=== PATIENT | female | born 1950 | race Caucasian/White ===

== ENCOUNTER → 2017-06-08 | Day surgery (SDC) | payer OTHER, MEDICARE ==
[~2017-06-08] VITALS: Ht 170.2 cm; Wt 129.3 kg
[~2017-06-08] MED LIST: ADVAIR 100-501 EACH INH; ALBUTEROL2.5 MG/3 M INH/SOL; ALPRAZOLAM0.5 MG PO; ASPIRIN EC81 M1 PO; ATORVASTATIN CA20 MG PO; AUGMENTIN 875-1 EACH PO; COZAAR50 M1 PO; CYMBALTA 30 MG30 MG PO; DICLOFENAC SODI75 M3 PO; ECOTRIN81 MG PO; ENDOCET 325 MG-1 TA1 PO; FISH OIL 1,0001 EAC2 PO; FLEXERIL10 MG PO; HYDROCODONE/ACE1 TA1 PO; LAMICTAL200 M1 PO; LASIX20 M1 PO; LIPITOR20 M2 PO; LISINOPRIL20 MG PO; MORPHINE SULFAT30 M4 PO; MULTIVITAMIN1 TAB PO; OXYCODONE5 M1 PO; PERCOCET 10-321 EACH PO; PREDNISONE50 M1 PO; PROBIOTIC FORMU1 CAP PO; PROPRANOLOL HCL80 M2 PO; PROPRANOLOL HYD80 MG PO; SKELAXIN800 M1 PO; TURMERIC500 M2 PO; VENTOLIN HFA18 GM INH; VENTOLIN HFA18 GM PO; VICODIN 5-3001 EACH PO; VITAMIN B COMP1 EACH PO; WELLBUTRIN XL150 M2 PO
--- NOTE | 2017-06-08 10:27 | Operative Report ---
Operative/Inv Procedure Report Surgery Date: 06/08/17 Name of Procedure: Cataract extraction with intraocular lens implantation left eye Pre-Operative Diagnosis: Age-related cataract left eye Post-Operative Diagnosis: Same Estimated Blood Loss: none Surgeon/Salvage Inspector: Denver Pink MD Anesthesia: local monitored anesthesi Complications: None Operative/Procedure Note Note: Preoperatively the patient was noted to have 20/40 vision in the left eye . The risks, benefits, and alternatives to surgery were discussed at length with the patient. Informed consent was obtained. Orientation presley were placed on the eye in the preoperative area. The patient was brought to the operating room where the left eye was prepped and draped in the normal sterile fashion. A speculum was placed on the left eye with good exposure. The axis was marked at 100. A stab incision was made using a paracentesis blade. Intracameral lidocaine was placed. Viscoelastic was used to form the anterior chamber. A clear corneal incision was made using keratome blade. A continuous curvilinear capsulorrhexis was made using a cystotome needle followed by Utrata forceps. There was no extension of the rhexis. Hydrodissection was performed using balanced salt solution. The cataract was removed using a stop and chop technique. Residual cortex was removed using coaxial irrigation and aspiration. The capsule was polished using irrigation and aspiration and the posterior capsule was cleaned using a balanced salt solution jet. There was no residual lens material inside the eye. The capsular bag was reformed using viscoelastic. An intraocular lens ZCT 300 of power 13.5 was verified and confirmed. He was loaded into an injector and injected into the eye. The lens was placed entirely within the capsular bag. Viscoelastic was evacuated using irrigation and aspiration. The intraocular lens was rotated and placed in its proper axis orientation. The wounds were stromally hydrated and the eye filled to physiologic pressure using balanced salt solution. Intracameral cefuroxime was placed. Speculum was removed and a shield was placed on the eye. The patient was brought to the recovery area without incident. Instructions were given to follow-up the next day for routine postoperative care.
== END ==
LOC: STS 01:54
DX: H25.9 Unspecified age-related cataract (principal); I10 Essential (primary) hypertension; C91.10 Chronic lymphocytic leukemia of B-cell type not having achieved remission
CPT/HCPCS: J2250; V2632; V2787-GY